=== PATIENT | female | born 1935 | race Caucasian/White ===

== ENCOUNTER → 2016-05-12 | Outpatient (REF) | payer MEDICARE, MEDICAID, BC ==
[~2016-05-12] MED LIST: /WARF25TA OR; ACET65TA OR; ANTI12.5; ASP81 PO; ATENOL25 PO; CALCIUM/VIT D PO; CALCWAF4 PO; CLOTPOW; COLA100C2; COLA100C2 PO; COLACE PO; DEPA250T2; DEPA250T3 PO; DEPA500T PO; DEPAKOT250 PO; FERROUS325 PO; FUROSEM PO; HYDROD25 PO; IMODIUM2 PO; KAOPECTATE; KLORCON20 PO; LASI40TA; LASI40TA PO; LASIX40 PO; LEVO112T PO; LEVOXYL50 PO; LOPERAMIDE; LOPR50TA OR; MAALSUS; MECLIZIN PO; MILKSUS; MILKSUS OR; MIRALAX PO; MIRALEX PO; MYSO50TA PO; MYSOLINE50 PO; NORV5TAB OR; NORVASC5 PO; OMEP20TA7 PO; PAIN325T; PERC5TAB8 OR; POLYETHYLENE GLYCOL; POTA20TA PO; POTA20TA2; POTASSI20 PO; POTASSIU10 PO; PRIL20CA; PROTONIX40 PO; RISPERDAL PO; SERO200T; SEROQUEL PO; SYNT112T; SYNTHROID1 PO; TOPROL25 PO; TOPROLXL50 PO; TUSSLIQ3; TYLENOL325 PO; TYLENOL500 PO; VITACAP16; VITAMIN D50000 UNT; VITAMIN D50000 UNT PO; [UNRECOGNIZED DRUG - CODE] PO; [UNRECOGNIZED DRUG - CODE] PO; [UNRECOGNIZED DRUG - MIXTURE]; [UNRECOGNIZED DRUG - OTHER] PO; fleet enema PR
[2016-05-12 17:55] LABS: ALBUMIN 2.9 GM/DL (3.2-5.2); ALBUMIN/GLOBULIN RATIO 0.74 (1.00-1.93); ALKALINE PHOSPHATASE 327 U/L (45-117); ALT/SGPT 18 U/L (12-78); AST/SGOT 19 U/L (15-37); BILIRUBIN,DIRECT < 0.1 MG/DL (0.0-0.2); BILIRUBIN,TOTAL 0.1 MG/DL (0.2-1.0); TOTAL PROTEIN 6.8 GM/DL (6.4-8.2)
== END ==
PROVIDERS: ATTEND Internal Medicine
DX: F31.30 Bipolar disorder, current episode depressed, mild or moderate severity, unspecified (principal)

== ENCOUNTER → 2016-05-27 | Outpatient (REF) | payer MEDICARE, MEDICAID, BC ==
[2016-05-27 11:08] LABS: ALBUMIN 2.8 GM/DL (3.2-5.2); ALBUMIN/GLOBULIN RATIO 0.72 (1.00-1.93); BILIRUBIN,TOTAL 0.2 MG/DL (0.2-1.0); CALCIUM LEVEL 7.1 MG/DL (8.8-10.2); CREATININE FOR GFR 1.31 MG/DL (0.55-1.02); GLOMERULAR FILTRATION RATE 41.6 (>32); POTASSIUM SERUM 4.8 MEQ/L (3.5-5.1); TOTAL PROTEIN 6.7 GM/DL (6.4-8.2)
== END ==
PROVIDERS: ATTEND Internal Medicine
DX: D64.9 Anemia, unspecified (principal); I10 Essential (primary) hypertension

== ENCOUNTER → 2016-07-07 | Outpatient (REF) | payer MEDICARE, MEDICAID, BC | PROVIDERS: ATTEND Internal Medicine | DX: R19.7 Diarrhea, unspecified (principal); F41.9 Anxiety disorder, unspecified; F32.89 Other specified depressive episodes; G31.9 Degenerative disease of nervous system, unspecified ==

== ENCOUNTER → 2016-07-28 | Outpatient (REF) | payer MEDICARE, MEDICAID, BC | PROVIDERS: ATTEND Internal Medicine | DX: E03.9 Hypothyroidism, unspecified (principal); E11.9 Type 2 diabetes mellitus without complications ==

== ENCOUNTER → 2016-08-04 | Outpatient (REF) | payer MEDICARE, MEDICAID, BC | PROVIDERS: ATTEND Internal Medicine | DX: E11.9 Type 2 diabetes mellitus without complications (principal) ==

== ENCOUNTER → 2016-11-25 | Outpatient (REF) | payer MEDICARE, MEDICAID, BC ==
[2016-11-25 10:35] LABS: MEAN CORPUSCULAR HEMOGLOBIN 32.7 pg (27.0-33.0); MEAN CORPUSCULAR HGB CONC 34.2 g/dl (32.0-36.5); MEAN CORPUSCULAR VOLUME 95.6 fl (80.0-96.0); RED CELL DISTRIBUTION WIDTH 14.8 % (11.5-14.5); WHITE BLOOD COUNT 6.9 K/mm3 (4.0-10.0)
[2016-11-25 11:07] LABS: ALBUMIN 2.9 GM/DL (3.2-5.2); ALBUMIN/GLOBULIN RATIO 0.67 (1.00-1.93); BILIRUBIN,TOTAL 0.2 MG/DL (0.2-1.0); CALCIUM LEVEL 7.7 MG/DL (8.8-10.2); CREATININE FOR GFR 1.46 MG/DL (0.55-1.02); GLOMERULAR FILTRATION RATE 36.7 (>32); TOTAL PROTEIN 7.2 GM/DL (6.4-8.2)
== END ==
PROVIDERS: ATTEND Internal Medicine
DX: D64.9 Anemia, unspecified (principal); I10 Essential (primary) hypertension

== ENCOUNTER → 2016-11-26 | Outpatient (REF) | payer MEDICARE, MEDICAID, BC ==
[2016-11-26 15:06] LABS: MEAN CORPUSCULAR HEMOGLOBIN 30.6 pg (27.0-33.0); MEAN CORPUSCULAR HGB CONC 31.6 g/dl (32.0-36.5); MEAN CORPUSCULAR VOLUME 96.8 fl (80.0-96.0); RED CELL DISTRIBUTION WIDTH 14.5 % (11.5-14.5); WHITE BLOOD COUNT 6.8 K/mm3 (4.0-10.0)
[2016-11-26 15:31] LABS: ALBUMIN/GLOBULIN RATIO 0.7 (1.00-1.93); BILIRUBIN,TOTAL 0.1 MG/DL (0.2-1.0); CALCIUM LEVEL 7.8 MG/DL (8.8-10.2); CREATININE FOR GFR 1.34 MG/DL (0.55-1.02); GLOMERULAR FILTRATION RATE 40.5 (>32); TOTAL PROTEIN 7.3 GM/DL (6.4-8.2)
[2016-11-26 15:34] LABS: POTASSIUM SERUM 5.2 MEQ/L (3.5-5.1)
== END ==
PROVIDERS: ATTEND Internal Medicine
DX: K62.5 Hemorrhage of anus and rectum (principal)

== ENCOUNTER → 2016-11-27 | Outpatient (REF) | payer MEDICARE, MEDICAID, BC ==
[2016-11-27 18:15] LABS: CALCIUM LEVEL 7.8 MG/DL (8.8-10.2); CREATININE FOR GFR 1.39 MG/DL (0.55-1.02); GLOMERULAR FILTRATION RATE 38.8 (>32)
[2016-11-27 18:19] LABS: POTASSIUM SERUM 5.6 MEQ/L (3.5-5.1)
== END ==
PROVIDERS: ATTEND Internal Medicine
DX: E87.5 Hyperkalemia (principal); F41.9 Anxiety disorder, unspecified; F32.89 Other specified depressive episodes; G31.9 Degenerative disease of nervous system, unspecified

== ENCOUNTER → 2016-11-29 | Outpatient (REF) | payer MEDICARE, MEDICAID, BC ==
[2016-11-29 06:47] LABS: CALCIUM LEVEL 7.7 MG/DL (8.8-10.2); CREATININE FOR GFR 1.41 MG/DL (0.55-1.02); GLOMERULAR FILTRATION RATE 38.2 (>32)
[2016-11-29 06:55] LABS: POTASSIUM SERUM 5.5 MEQ/L (3.5-5.1)
== END ==
PROVIDERS: ATTEND Internal Medicine
DX: E87.5 Hyperkalemia (principal)

== ENCOUNTER → 2016-11-30 | Outpatient (REF) | payer MEDICARE, MEDICAID, BC ==
[2016-11-30 14:20] LABS: CALCIUM LEVEL 7.7 MG/DL (8.8-10.2); CREATININE FOR GFR 1.24 MG/DL (0.55-1.02); GLOMERULAR FILTRATION RATE 44.3 (>32)
== END ==
PROVIDERS: ATTEND Internal Medicine
DX: E87.5 Hyperkalemia (principal)

== ENCOUNTER → 2016-12-03 | Outpatient (REF) | payer MEDICARE, MEDICAID, BC ==
[2016-12-03 12:11] LABS: CALCIUM LEVEL 7.5 MG/DL (8.8-10.2); CREATININE FOR GFR 1.23 MG/DL (0.55-1.02); GLOMERULAR FILTRATION RATE 44.7 (>32)
== END ==
PROVIDERS: ATTEND Internal Medicine
DX: E87.5 Hyperkalemia (principal)

== ENCOUNTER → 2016-12-22 | Outpatient (REF) | payer MEDICARE, MEDICAID, BC ==
[2016-12-22 14:03] LABS: MEAN CORPUSCULAR HEMOGLOBIN 31.1 pg (27.0-33.0); MEAN CORPUSCULAR HGB CONC 32.9 g/dl (32.0-36.5); MEAN CORPUSCULAR VOLUME 94.4 fl (80.0-96.0); RED CELL DISTRIBUTION WIDTH 14.1 % (11.5-14.5); WHITE BLOOD COUNT 9.4 K/mm3 (4.0-10.0)
[2016-12-22 15:23] LABS: CALCIUM LEVEL 7.7 MG/DL (8.8-10.2); CREATININE FOR GFR 1.08 MG/DL (0.55-1.02); POTASSIUM SERUM 4.3 MEQ/L (3.5-5.1)
== END ==
PROVIDERS: ATTEND Internal Medicine
DX: F06.8 Other specified mental disorders due to known physiological condition (principal)

== ENCOUNTER → 2017-01-07 | Outpatient (REF) | payer MEDICARE, MEDICAID, BC ==
[2017-01-07 15:53] LABS: MEAN CORPUSCULAR HEMOGLOBIN 29.8 pg (27.0-33.0); MEAN CORPUSCULAR HGB CONC 31.7 g/dl (32.0-36.5); WHITE BLOOD COUNT 7.1 K/mm3 (4.0-10.0)
[2017-01-07 15:54] LABS: CREATININE FOR GFR 1.18 MG/DL (0.55-1.02); GLOMERULAR FILTRATION RATE 46.9 (>32); POTASSIUM SERUM 4.2 MEQ/L (3.5-5.1)
--- NOTE | 2017-01-07 16:18 | REP ---
Clinical: Cough and wheezing. Comparison: 06/17/2011. Findings: Examination is limited by portable technique and underpenetration - both of which accentuate the pulmonary vasculature and interstitium. Mild interstitial edema cannot be excluded. No focal consolidation, effusion or pneumothorax identified. Skeletal structures demonstrate age-related degenerative change. Impression: Cannot exclude mild interstitial edema. Signed by Clayton Simental MD 01/07/2017 04:10 P
== END ==
PROVIDERS: ATTEND Internal Medicine
DX: I50.9 Heart failure, unspecified (principal); R05 Cough; R06.2 Wheezing

== ENCOUNTER → 2017-01-15 | Outpatient (REF) | payer MEDICARE, MEDICAID, BC ==
--- NOTE | 2017-01-15 13:00 | REP ---
Clinical: Hypoxia. Comparison 01/07/2017. Findings: Mediastinum and cardiac silhouette are stable with cardiomegaly again suggested. Lung kilgore demonstrate diffuse chronic changes including scattered calcified granulomata. No obvious focal consolidation, effusion, or pneumothorax. Skeletal structures demonstrated stable osteopenia and degenerative changes. Impression: Chronic stable changes. No acute cardiopulmonary process appreciated. Signed by Clayton Simental MD 01/15/2017 12:51 P
== END ==
PROVIDERS: ATTEND Internal Medicine
DX: R09.02 Hypoxemia (principal)

== ENCOUNTER → 2017-01-26 | Outpatient (REF) | payer MEDICARE, MEDICAID, BC | PROVIDERS: ATTEND Internal Medicine | DX: E03.9 Hypothyroidism, unspecified (principal) ==

== ENCOUNTER → 2017-02-10 | Outpatient (REF) | payer MEDICARE, MEDICAID, BC | PROVIDERS: ATTEND Internal Medicine | DX: E03.9 Hypothyroidism, unspecified (principal) ==

== ENCOUNTER → 2017-04-13 | Outpatient (REF) | payer MEDICARE, MEDICAID, BC | PROVIDERS: ATTEND Internal Medicine | DX: E03.9 Hypothyroidism, unspecified (principal) ==

== ENCOUNTER → 2017-05-06 | Outpatient (REF) | payer MEDICARE, MEDICAID, BC ==
[2017-05-06 17:43] LABS: ALBUMIN 2.5 GM/DL (3.2-5.2); ALBUMIN/GLOBULIN RATIO 0.68 (1.00-1.93); ALKALINE PHOSPHATASE 283 U/L (45-117); ALT/SGPT 11 U/L (12-78); ANION GAP 11 MEQ/L (8-16); AST/SGOT 23 U/L (7-37); BILIRUBIN,TOTAL 0.3 MG/DL (0.2-1.0); BLOOD UREA NITROGEN 92 MG/DL (7-18); CALCIUM LEVEL 7.6 MG/DL (8.8-10.2); CARBON DIOXIDE LEVEL 12 MEQ/L (21-32); CHLORIDE LEVEL 119 MEQ/L (98-107); GLOMERULAR FILTRATION RATE 10.8 (>32); GLUCOSE, FASTING 84 MG/DL (83-110); SODIUM LEVEL 142 MEQ/L (136-145); TOTAL PROTEIN 6.2 GM/DL (6.4-8.2)
[2017-05-06 18:06] LABS: POTASSIUM SERUM 6.8 MEQ/L (3.5-5.1)
[2017-05-06 18:39] LABS: HEMATOCRIT 33.5 % (36.0-47.0); HEMOGLOBIN 10.1 g/dl (12.0-16.0); MEAN CORPUSCULAR HEMOGLOBIN 28.6 pg (27.0-33.0); MEAN CORPUSCULAR HGB CONC 30.1 g/dl (32.0-36.5); MEAN CORPUSCULAR VOLUME 94.9 fl (80.0-96.0); RED BLOOD COUNT 3.53 10^6/uL (4.00-5.40); RED CELL DISTRIBUTION WIDTH 19.4 % (11.5-14.5); WHITE BLOOD COUNT 8.1 10^3/uL (4.0-10.0)
[2017-05-06 19:24] LABS: IMMATURE PLATELET FRACTION % 15.9 % (0.0-9.6); PLATELET COUNT, AUTOMATED 77 10^3/uL (150-450)
== END ==
DX: R40.4 Transient alteration of awareness (principal)
CPT/HCPCS: 80053

== ENCOUNTER → 2017-05-07 | Outpatient (REF) | payer MEDICARE, MEDICAID, BC ==
[2017-05-07 13:02] LABS: ANION GAP 10 MEQ/L (8-16); BLOOD UREA NITROGEN 98 MG/DL (7-18); CALCIUM LEVEL 7.4 MG/DL (8.8-10.2); CARBON DIOXIDE LEVEL 11 MEQ/L (21-32); CHLORIDE LEVEL 119 MEQ/L (98-107); CREATININE FOR GFR 4.62 MG/DL (0.55-1.02); GLOMERULAR FILTRATION RATE 9.7 (>32); GLUCOSE, FASTING 77 MG/DL (83-110); SODIUM LEVEL 140 MEQ/L (136-145)
[2017-05-07 13:10] LABS: POTASSIUM SERUM 7.7 MEQ/L (3.5-5.1)
== END ==
DX: R09.89 Other specified symptoms and signs involving the circulatory and respiratory systems (principal)
CPT/HCPCS: 80048